=== PATIENT | female | born 1970 | race Caucasian/White ===

== ENCOUNTER → 2020-12-12 09:13 | Outpatient (CLI) | payer OTHER, SELFPAY ==
--- NOTE | ~2020-12-12 | CT_ITS ---
EXAMINATION: CT abdomen pelvis wo con EXAM DATE: 12/12/2020 09:29 INDICATION: Right flank pain. TECHNIQUE: Spiral CT of the abdomen and pelvis was performed without contrast. Axial, coronal and s agittal images were reviewed. The dose-length product (DLP) for this examination was 246.03 mGy-cm. The exposure was tailored according to patient size (auto mA exposure control), and iterative recons truction (ASIR) was used as additional dose reduction technique. There is no prior study for compari son. FINDINGS: The liver, spleen, adrenal glands and pancreas are unremarkable. Gallbladder is unremarkab le. No biliary obstruction. Punctate left superior calyceal stone. No ureteral stones or hydronephr osis. The uterus is unremarkable. The bladder is unremarkable. There is no retroperitoneal or pel nat lymphadenopathy. There is minimal intra-abdominal fat making appendix difficult to identify. The stomach and small israel wel are unremarkable. There is moderate amount of colonic stool. No free intraperitoneal gas. Th e heart is normal in size. There are no pericardial or pleural effusions. The lung bases are unrema rkable. The bones are unremarkable. IMPRESSION: No nephrolithiasis, hydronephrosis or acute intra-abdominal findings. Punctate left nephr olithiasis. Reviewed, dictated and finalized at location B. WAY MAINTENANCE SUPERVISOR IMPRESSION: No nephrolithiasis, hydronephrosis or acute intra-abdominal finding s. Punctate left nephrolithiasis.
--- NOTE | ~2020-12-12 | XR_ITS ---
EXAMINATION: XR abdomen/kub 1V INDICATION: Right flank pain TECHNIQUE: Supine views of the abdomen were obtained on 2 radiographs. COMPARISON: CT from today FINDINGS: No urolithiasis is identified. There are phleboliths of the pelvis. A moderate volume of co lonic stool is present. No dilated loops of bowel are evident. The visualized lung bases are clear. IMPRESSION: 1. No urolithiasis identified. Reviewed, dictated and finalized at location A. ICITY PERSON
== END ==
PROVIDERS: Visit Provider Urology
DX: R10.9 Unspecified abdominal pain (principal)
CPT/HCPCS: 74018; 74176

== ENCOUNTER → 2022-07-16 13:10 | Outpatient (CLI) | payer BC, SELFPAY ==
--- NOTE | ~2022-07-16 | XR_ITS ---
XR abdomen/kub 1V 07/16/2022 14:00 Indication: Bilateral hydronephrosis Procedure: KUB Comparison: 12/12/2020 Findings: Bowel gas pattern is nonobstructive. Moderate colonic fecal loading. There is bilateral dil ation of the renal collecting systems and proximal aspect of the left ureter. There is residual contr ast in the bladder. Impression: 1: Mild bilateral hydronephrosis. Reviewed, dictated and finalized at location B. Impression: 1: Mild bilateral hydronephrosis.
--- NOTE | ~2022-07-16 | CT_ITS ---
EXAMINATION: CT abdomen pelvis wo/w con DATE: 07/16/2022 14:00 INDICATION: Unspecified hydronephrosis. TECHNIQUE: Computed tomography (CT) of the abdomen and pelvis was performed without and with intraven ous contrast using a total of 130 mL Omnipaque-350 intravenous contrast with a double-bolus technique for simultaneous opacification of the renal parenchyma and renal collecting system. Automated exposu re control and iterative reconstruction technique were employed. The dose-length product was 717.80 m Gy-cm. COMPARISON: CT abdomen and pelvis 12/12/2020 FINDINGS: The visualized portions of the lung bases demonstrate mild atelectasis. No pleural effusion. The hear t size is normal. No pericardial effusion. There are bilateral breast implants. The liver, gallbladde r, spleen, pancreas, adrenal glands, and right kidney are normal. There is a 2 mm stone in left kidne y. The right ureter is not well opacified distally, but is normal. Left ureter is well opacified and is normal. The bladder is normal. There are no pathologically enlarged lymph nodes. There is no free intraperitoneal fluid. There is severe degenerative disc disease at L5-S1. IMPRESSION: 1. 2 mm nonobstructing left kidney stone. Reviewed, dictated and finalized at location A.
[2022-07-16 13:33] LABS: Estimated Glomerular Filt Rate > 60
== END ==
PROVIDERS: PCP Physician Assistant; Visit Provider Urology
DX: N13.30 Unspecified hydronephrosis (principal); N20.0 Calculus of kidney
CPT/HCPCS: 74018; 74178; Q9967

== ENCOUNTER 2023-08-05 09:00 | Outpatient (CLI) | payer OTHER, SELFPAY ==
--- NOTE | ~2023-08-05 | XR_ITS ---
EXAMINATION: XR abdomen/kub 1V INDICATION: Left-sided kidney stone TECHNIQUE: Supine views of the abdomen were obtained on 2 radiographs. COMPARISON: 07/16/2022 FINDINGS: There are phleboliths of the pelvis. No definite urolithiasis is identified. A moderate vol ume of colonic stool is present. There is mild elevation of the right hemidiaphragm. Osteitis pubis i s noted. IMPRESSION: 1. No definite urolithiasis identified. Reviewed, dictated and finalized at location L.
== END 2023-08-05 09:01 | disposition home or self-care (01) ==
PROVIDERS: PCP Physician Assistant; Visit Provider Urology
DX: N20.0 Calculus of kidney (principal)
CPT/HCPCS: 74018

== ENCOUNTER 2024-08-12 08:35 | Outpatient (CLI) | payer OTHER, SELFPAY ==
--- NOTE | ~2024-08-12 | XR_ITS ---
EXAMINATION: XR abdomen/kub 1V DATE: 08/12/2024 09:10 INDICATION: Kidney stone on left side. TECHNIQUE: A supine view of the abdomen on 3 radiographs was obtained. COMPARISON: CT abdomen and pelvis 07/16/2022, abdomen radiographs 08/05/2023 FINDINGS: There are no dilated loops of bowel. There are phleboliths in the pelvis. IMPRESSION: 1. No visible urolithiasis. Reviewed, dictated and finalized at location A. IMPRESSION: 1. No visible urolithiasis.
== END 2024-08-12 08:36 | disposition home or self-care (01) ==
PROVIDERS: PCP Physician Assistant; Visit Provider Urology
DX: N20.0 Calculus of kidney (principal)
CPT/HCPCS: 74018

== ENCOUNTER 2025-02-10 08:11 | Emergency (ER) | payer OTHER, SELFPAY ==
--- NOTE | 2025-02-10 08:14 | ED.FEMALEGU ---
HPI - Female Genitourinary General Chief complaint: Urogenital-Female Stated complaint: UTI SYMPTOMS Time Seen by Provider: 02/10/25 08:13 Source: patient Mode of arrival: ambulatory Limitations: no limitations History of Present Illness HPI Narrative: Patient is a 54-year-old female that presents with frequency, fullness and right lower quadrant pain For less than 48 hours. Patient has history of UTIs and sees a urologist. Patient reports pain is similar to the last UTI. denies any low back pain, fever, chills, nausea, vomiting, diarrhea. MD elicited complaint: dysuria Related Data Allergies Allergy/AdvReac Type Severity Reaction Status Date / Time codeine Allergy Unknown Unknown Verified 02/10/25 08:25 Review of Systems Review of Systems: All systems reviewed & are unremarkable except as noted in HPI and below Constitutional: Constitutional: Denies chills, Denies fever(s), Denies headache(s), Denies malaise and Denies weakness Eyes: Eyes: Denies change in vision, Denies eye discharge and Denies irritation ENT: Denies otalgia, Denies headache(s), Denies nasal congestion, Denies nasal discharge, Denies sinus pain and Denies sore throat Cardiovascular: Cardiovascular: Denies chest pain, Denies edema, Denies palpitations and Denies dyspnea Respiratory: Respiratory: Denies cough and Denies dyspnea Gastrointestinal: Gastrointestinal: Denies abdominal pain, Denies diarrhea, Denies nausea and Denies vomiting Genitourinary: Genitourinary: Denies hematuria, Reports nocturia, Denies dysuria, Denies flank pain and Reports urinary urgency Musculoskeletal: Musculoskeletal: Denies back pain and Denies numbness Integumentary/Breasts: Skin/Breast: Denies pruritus and Denies rash Neurologic: Denies headache(s), Denies numbness and Denies weakness Psychiatric: Psychiatric: Reports no additional psychiatric complaints Endocrine: Endocrine: Denies palpitations PMFSH Family History Family History Mother Hypertension Father Family history of pancreatic cancer Social History Social History Alcohol intake: never Comments At time of signature, agree with nursing past medical, surgical, social and family history. There is no relevant family history pertinent to the presenting complaint. Exam Const: General: cooperative, healthy appearing, comfortable, no acute distress and well nourished Nutritional Appearance: well nourished Orientation/consciousness: patient oriented x3 HENMT: Head: normocephalic and atraumatic Ears: external ears normal Face/Nose/Sinus: Normal external nose present, Normal nares present and normal facial exam Face and sinus: normal facial exam Eyes: General: appearance normal, both eyes and all related structures Pupils: Equal, round and reactive pupils present EOM: EOMs intact bilaterally Neck: Neck: normal visual inspection, full ROM and supple Chest: Chest palpation & inspection: normal inspection of the chest Resp: Effort & Inspection: normal respiratory effort and able to speak in complete sentences Cardio: Rate: regular rate Rhythm: regular rhythm GI: Inspection: normal to inspection GI Palp: No abdominal tenderness and Yes Soft to palpation : General: Yes no CVA tenderness Back/Spine/Pelvis: Back: no CVA tenderness Skin: General skin exam: normal color and no rashes or lesions noted Neuro: General: patient oriented x3 and moves all extremities Cranial nerves: Yes Equal, round and reactive pupils present Extrem: General: normal to inspection and full ROM Psych: Appearance: grossly normal and well kempt Course Course Emergency Course: Patient is aware of diagnosis, understands and agrees to treatment plan. Anticipatory guidance given. Patient agrees to follow-up as directed and is aware of reasons to seek care at the emergency department. Portions of this record may have been created with voice recognition software Level of Care: Express Care Visit Vital Signs Vital signs: Vital Signs Temperature 36.4 C 02/10/25 08:27 Pulse Rate 62 02/10/25 08:27 Respiratory Rate 16 02/10/25 08:27 Blood Pressure 116/83 02/10/25 08:27 Pulse Oximetry 100 02/10/25 08:27 Temperature 36.4 C 02/10/25 08:27 Pulse Rate 62 02/10/25 08:27 Respiratory Rate 16 02/10/25 08:27 Blood Pressure 116/83 02/10/25 08:27 Pulse Oximetry 100 02/10/25 08:27 Reviewed MDM - Female Genitourinary MDM Narrative Medical decision making narrative: patient has known right hip flexor dysfunction that causes similar symptoms of a UTI. Patient works closely with her urologist. Exam findings and UA show probable UTI; patient is non-toxic appearing and is in no distress. No CMT, adnexal tenderness, or evidence of pelvic etiology. Patient is appropriate for outpatient treatment and follow-up. Differential Diagnosis Differential diagnosis: Likely urinary tract infection, bacterial vaginosis, trichomoniasis, cervicitis, vaginitis and cystitis Medical Records Attestation: I reviewed the patient's medical records. Lab Data Attestation: I reviewed the patient's lab results. Labs: Lab Results 02/10/25 Range/Units 08:33 POC Urine Color Light/pale POC Urine Clarity Clear POC Urine pH 7.0 POC Ur Specif [place] 1.010 POC Urine Protein Negative (Negative) POC Ur Glucose (UA) Negative (Negative) POC Urine Ketones Negative (Negative) POC Urine Blood Trace (Negative) POC Urine Nitrite Negative (Negative) POC Urine Bilirubin Negative (Negative) POC Urine Urobilinogen 0.2 POC U Leukocyte Esteras Trace (Negative) Discharge Plan Discharge Clinical Impression: Urinary tract infection Qualifiers: Urinary tract infection type: acute cystitis Hematuria presence: without hematuria Qualified Code(s): N30.00 - Acute cystitis without hematuria Patient Disposition: Home, Self-Care Condition: Stable Instructions: Urinary Tract Infection in Women (ED) Additional Instructions: We will send a urine culture to the lab, based on your symptoms and urine dip we will start treatment today. If culture comes back and bacteria is not susceptible to antibiotic, your prescription may change. Your symptoms should improve within a day of starting antibiotics, but you should finish all the antibiotic pills you get. Otherwise your infection might come back Continue with increased water intake. Take Tylenol or ibuprofen as needed for pain or fever. Follow-up with primary care provider for urine recheck or see ER visit if condition worsens with high fever, nausea, vomiting, severe back pain Patient Language: Danish Prescriptions: New sulfamethoxazole-trimethoprim 800-160 mg tablet 1 tablet PO Q12H 5 Days Qty: 10 0RF Follow-up/Referrals: Sonya,LANI Burkett [Primary Care Provider] - 3 Days Time of Disposition: 08:52
[2025-02-10 08:27] VITALS: BP 116/83; PULSE 62; RESP 16; TEMP 36.4; O2SAT 100
[2025-02-10 08:36] LABS: EDUAAPPEAR Clear; EDUABILI Negative (Negative); EDUABLOOD Trace (Negative); EDUACOLOR1 Light/Pale; EDUAGLUCOSE Negative (Negative); EDUAKETONE Negative (Negative); EDUALEUKO Trace (Negative); EDUANITRATE Negative (Negative); EDUAPROTEIN Negative (Negative); EDUAUROBILI 0.2
== END 2025-02-10 08:58 | disposition home or self-care (01) ==
PROVIDERS: Emergency Provider Nurse Practitioner Family; PCP Physician Assistant
DX: N30.00 Acute cystitis without hematuria (principal)
CPT/HCPCS: 81003; 87086; 99203; G0463

== ENCOUNTER 2025-04-10 08:02 | Emergency (ER) | payer OTHER, SELFPAY ==
--- NOTE | 2025-04-10 08:05 | ED_ITS ---
HPI - Eye Problem General Stated complaint: Left Eye Irritation Time Seen by Provider: 04/10/25 08:02 Source: patient Mode of arrival: ambulatory Limitations: no limitations History of Present Illness HPI Narrative: Nissa is a 54-year-old female patient presenting to the clinic today with complaints of left upper eyelid pain x1 week. She reports the area is gradually gotten bigger and more swollen. Has tried doing allergy drops without relief. No fevers, chills, body aches. Had URI symptoms for couple weeks however those have resolved. Related Data Allergies Allergy/AdvReac Type Severity Reaction Status Date / Time codeine Allergy Unknown Unknown Verified 02/10/25 08:25 Review of Systems Review of Systems: Pertinent positives per HPI. Patient denies any fever, chills, rash, headache, visual changes, dizziness, cough, shortness of breath, chest pain, palpitations, nausea, vomiting, diarrhea, constipation, abdominal pain, or any urinary issues. [facility] Family History Family History Mother Hypertension Father Family history of pancreatic cancer Social History Social History Alcohol intake: never Comments At the time of my signature, I reviewed and agree with the nursing past medical, surgical, social, and family history. There is no relevant family history pertinent to the patient complaint. Exam Narrative: General: Well-developed, well nourished, in no apparent distress Head: Normocephalic, atraumatic Eyes: Pupils equally round and reactive to light bilaterally, EOM intact, sclera and conjunctive clear, no discharge, left upper eyelid swollen and red tenderness to palpation with internal stye to the mid upper lid Ears: TMs intact and clear, ear canals clear, no drainage, grossly hearing normal. Nose: Nares patent, no discharge, no inflammation, no sinus tenderness. Mouth: Oral pharynx without lesions or masses, good dentition, MMM. Neck: Supple, trachea midline, no enlargement of anterior or posterior cervical nodes, no thyroid masses or goiter palpable. Cardio: Regular rate and rhythm, s1 and s2 normal, no murmur appreciated. Resp: Clear to auscultation bilaterally, no rhonchi, rales, wheezing or rubs Course Course Emergency Course: Portions of this record may have been created with voice recognition software. Level of Care: Express Care Visit Vital Signs Vital signs: Vital signs reviewed MDM - Eye Problem MDM Narrative Medical decision making narrative: At the time of visit patient is resting comfortably on the exam table. Patient appears to be nontoxic. Plan: I suspect patient has an internal stye. Prescription for polymyxin eyedrops was sent to the pharmacy. Supportive measures were discussed with the patient and they voiced understanding discharge instructions and agrees to treatment plan. Return precautions reviewed Differential Diagnosis Differential diagnosis: Likely corneal abrasion, conjunctivitis, acute iritis, hyphema, periorbital cellulitis, subconjunctival hemorrhage, glaucoma, corneal ulcer, ruptured globe and other (Stye) Discharge Plan Discharge Clinical Impression: Hordeolum eyelid, internal Qualifiers: Laterality: left Eyelid: upper Qualified Code(s): H00.024 - Hordeolum internum left upper eyelid Patient Disposition: Home Condition: Stable Instructions: Antibiotic Form, Stye (ED) Additional Instructions: Practice good hand washing techniques Avoid touching eyes Instill eyedrops as prescribed May use warm moist washcloth compresses-apply for 15 minutes at a time 6-8 times per day If eyes are matted shut-do not pry eyes open-use a warm moist cloth to loosen matting and wipe matter away from eye May take Tylenol/Motrin as needed for pain or fever May take Benadryl as needed for itching Follow-up with your eye doctor in 3-5 days if symptoms persist or sooner if they worsen Go to the emergency room if you develop any fever that is not controlled by Tylenol or Motrin, loss of vision, eye pain, increase eye swelling,visual changes, headache, confusion, lethargy, weakness, chest pain, or shortness of breath. Patient Language: Icelandic Prescriptions: New polymyxin B sulf-trimethoprim 10,000 unit- 1 mg/mL drops 1 drp LEFT EYE Q3H 7 Days Qty: 10 0RF Rx Instructions: while awake; do not exceed 6 doses in 24 hours No Action sulfamethoxazole-trimethoprim 800-160 mg tablet 1 tablet PO Q12H 5 Days Qty: 10 0RF Follow-up/Referrals: Sonya,LANI Burkett [Primary Care Provider] - Time of Disposition: 08:12 Quality NIHSS Nursing Documentation ED NIHSS nursing documentation: reviewed/agree
[2025-04-10 08:10] VITALS: BP 114/80; PULSE 48; RESP 16; TEMP 36.3; O2SAT 99
== END 2025-04-10 08:15 | disposition home or self-care (01) ==
PROVIDERS: Emergency Provider Nurse Practitioner Family; PCP Physician Assistant
DX: H00.024 Hordeolum internum left upper eyelid (principal)
CPT/HCPCS: 99213; G0463

== ENCOUNTER 2025-07-14 09:17 | Outpatient (CLI) | payer OTHER, SELFPAY ==
--- NOTE | ~2025-07-14 | XR_ITS ---
EXAMINATION: XR abdomen/kub 1V DATE: 07/14/2025 09:38 INDICATION: Kidney stone. Right-sided pain. Follow-up TECHNIQUE: A single frontal image of the abdomen was obtained. COMPARISON: 08/12/2024 FINDINGS: Moderate amount of air and stool in nondilated large bowel. No radiographic evidence for renal calcul i. There are a few stable less than 6 mm phlebolith in the pelvis. Small amount of air in nondilated sma ll bowel. Bones are grossly unchanged. IMPRESSION: 1. No radiographic evidence for renal calculi. 2. Nonobstructive bowel gas pattern with a moderate amount of stool. 3. There are a few stable less than 6 mm phlebolith in the pelvis. Reviewed, dictated and finalized at location A.
--- OUTSIDE RECORDS SUMMARY | 2025-07-14 09:33 | XMS_ITS | Encounter Summary ---
Author Organization [facility] Address [address] [place] [address] Care Team Providers Care Animal Anatomist Name Role Phone Jessica Hardwick MD Primary Care Provider [phone] Encounter Details Date Type Department Care Team (Latest Contact Info) Description 09/03/2008 Outpatient Historical [facility] Jonathan Pedro MD [address] [place] [address] Other Specified Complication, Antepartum Social History Tobacco Use Types Packs/Day Years Used Date Smoking Tobacco: Never Assessed Comments Unknown Sex and Gender Information Value Date Recorded Sex Assigned at Not on file 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
--- OUTSIDE RECORDS SUMMARY | 2025-07-14 09:33 | XMS_ITS | Clinical Summary ---
Author Organization [facility] [employer] Address [address] [place] [address] Care Team Providers Care Digital Marketing Officer Name Role Phone Unavailable Primary Care Provider Unavailabl e Source Comments [facility],non-owned Affiliates and Associated Physician Practices is amultiple site organization consisting of ambulatory clinics and hospital sitesin [place], [place], [place] and [place]. This disclosure is being madepursuant to the Care Everywhere program and may not contain all information available regarding this patient. Last updated 18.[facility] [employer] Allergies Active Allergy Reactions Criticality Noted Date Comments Codeine Swelling Medium 12/30/2005 Medications * Be aware that medications may not be up to date on this document. Alwaysverify current medications with the patient. cetirizine (ZYRTEC) 10 MG tablet Take 10 mg by mouth every 24 hours as needed Active fluticasone propionate (FLONASE) 50 MCG/ACT nasal spray Gibson 1 spray into the nose once daily 01/25/2017 Active montelukast (SINGULAIR) 10 MG tablet Take 1 tablet by mouth once daily 01/25/2017 Active Active Problems No known active problems Immunizations Immunization Administration Dates Next Due FLU VACCINE QUAD IIV4 PF ID 09/06/2016 INFLUENZA VACCINE, QUADR. (F LUZONE; FLULAVAL; FLUARIX; AFLURIA QUADRIVALENT; 6MO+), 0.5 ML (IIV4) 09/05/2020,09/08/2019,09/03/2018 Social History Tobacco Use Types Packs/Day Years Used Date Smoking Tobacco: Never Assessed Comments Unknown Sex and Gender Information Value Date Recorded Sex Assigned at Not on file Legal Sex Female 6:07 AM WEDDING DAY COORDINATOR Gender Identity Not on file Sexual Orientation Not on file Last Filed Vital Signs Vital Sign Reading Time Taken Comments Blood Pressure 118/70 11/02/2019 6:17 PM WEDDING DAY COORDINATOR Pulse 70 11/02/2019 6:17 PM WEDDING DAY COORDINATOR Temperature 36.8 C (98.3 F) 11/02/2019 6:17 PM WEDDING DAY COORDINATOR Respiratory Rate 20 11/02/2019 6:17 PM WEDDING DAY COORDINATOR Oxygen Saturation - - Inhaled Oxygen Concentration - - Weight - - Height - - Body Mass Index - - Plan of Treatment Health Maintenance Due Date Last Done Comments COLOGUARD (AGES 45-75) - COLON CA SCREENING 1971 COLON MONITORING 1971 COLONOSCOPY - COLON CA SCREENING 1971 CT COLONOGRAPHY - COLON CA SCREENING 1971 Colorectal Cancer Screening 1971 FIT - COLON CA SCREENING 1971 FLEX SIG - COLON CA SCREENING 1971 LIPID TESTING 1971 MAMMOGRAM 1971 HIV SCREENING 1986 HEPATITIS C SCREENING 10/04/1989 DTAP/TDAP/TD VACCINES (1 - Tdap) 1990 HEPATITIS B VACCINE (1 of 3 - 19+ 3-dose series) 1990 PNEUMOCOCCAL VACCINE 50+ (1 of 1 - PCV) 2021 ZOSTER VACCINE (1 of 2) 2021 PAP SMEAR 06/05/2023 06/05/2020 COVID-19 VACCINE ( - season) 2024 DEPRESSION SCREENING 12/01/2024 INFLUENZA VACCINE (#1) 2025 , 09/08/2019, 09/03/2018, Additional history exists HIB VACCINE Aged Out No longer eligi ble based on patient's age to complete this topic HPV VACCINE Aged Out No longer eligi ble based on patient's age to complete this topic MENINGOCOCCAL (Group B) VACCINE SHARED DECISION-MAKING Aged Out No longer eligible based on patient's age to complete this topic MENINGOCOCCAL GROUPS A/C/Y/W VACCINE Aged Out No longer eligible based on patient's age to complete this topic Insurance [employer] FORMERLY [facility], 1928–1983
--- OUTSIDE RECORDS SUMMARY | 2025-07-14 09:33 | XMS_ITS | Encounter Summary ---
Author Organization [facility] Address [address] [place] [address] Care Team Providers Care Hot Stick Worker Name Role Phone Jessica Hardwick MD Primary Care Provider [phone] Encounter Details Date Type Department Care Team (Late st Contact Info) Description 12/30/2005 Outpatient Historical [facility] Internal Medicine - [address] [place] [phone] [place] [address] [place] [id number] Social History Tobacco Use Types Packs/Day Years Used Date Smoking Tobacco: Never Assessed Comments Unknown Sex and Gender Information Value Date Recorded Sex Assigned at Not on file 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 [address] [place] [address] PCP - General Internal Medicine 10/08/16 documented as of this encounter
--- OUTSIDE RECORDS SUMMARY | 2025-07-14 09:33 | XMS_ITS | Encounter Summary ---
Author Organization [employer] Address 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
--- OUTSIDE RECORDS SUMMARY | 2025-07-14 09:34 | XMS_ITS | Encounter Summary ---
Author Organization [employer] Address [address] [place] [address] Care Team Providers Care Combat Control Name Role Phone Jessica Hardwick MD Primary Care Provider [phone] Encounter Details Date Type Department Care Team (Late st Contact Info) Description 06/29/2008 Outpatient Historical [facility] Jonathan Pedro MD [address] [facility] [address] [place] [address] Faheem Cardoso MD [address] [facility] [address] [address] Normal Delivery Social History Tobacco Use Types Packs/Day Years Used Date Smoking Tobacco: Never Assessed Comments Unknown Sex and Gender Information Value Date Recorded Sex Assigned at Not on file 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 Gender Identity Not on file Sexual Orientation Not on file documented as of this encounter Plan of Treatment Not on file documented as of this encounter Procedures Procedure Name Priority Date/Time Associated Diagnosis Comments CBC WITH DIFFERENTIAL Stat 09/01/2008 8:57 PM CDT URINALYSIS WITH REFLEX CULTURE Stat 09/01/2008 8:54 PM CDT URINALYSIS W/REFLEX MICROSCOPIC Stat 09/01/2008 8:54 PM CDT documented in this encounter Results * (ABNORMAL) CBC WITH DIFFERENTIAL (09/01/2008 8:57 PM CDT) RBC 3.62(L) 3.90 - 4.90 M/uL [facility] MCHC 35.0 31.5 - 35.5 % [facility] MCV 93.1 82.0 - 99.0 fL [facility] PLATELETS 249 140 - 350 K/uL [facility] HEMOGLOBIN 11.8 11.8 - 14.8 g/dL [facility] RDW 12.6 11.5 - 14.5 % [facility] WBC 11.1(H) 4.0 - 9.8 K/uL [facility] MCH 32.6 27.2 - 32.6 pg [facility] MPV 10.3 9.3 - 12.4 fL [facility] HEMATOCRIT 33.7(L) 35.5 - 44.0 % [facility] RDW-STDEV 43.0 37.1 - 48.7 fL [facility] MONOCYTES 5 3 - 13 % [facility] MONOCYTE ABSOLUTE 0.53 0.10 - 1.30 K/uL [facility] NEUTROPHILS 73(H) 45 - 70 % [facility] NEUTROPHIL ABSOLUTE 8.03(H) 1.90 - 7.00 K/uL [facility] EOSINOPHILS 1 0 - 7 % [facility] EOSINOPHIL ABSOLUTE 0.09 0.00 - 0.70 K/uL [facility] LYMPHOCYTES 22 16 - 45 % [facility] LYMPHOCYTE ABSOLUTE 2.40 0.70 - 4.50 K/uL [facility] BASOPHILS 0 0 - 2 % [facility] BASOPHILS ABSOLUTE 0.01 0.00 - 0.20 K/uL [facility] Blood specimen (specimen) 09/01/2008 8:57 PM CDT 09/01/2008 9:21 PM CDT Result [facility] Jonathan Pedro MD HEMATOLOGY ORDERABLES Edited Performing Organization Address [facility] Phone Number INTERFACE SYSTEM Refer to clinic/hospital department [facility] CLIA# [id number] [address] [place] [address] * URINALYSIS (09/01/2008 8:54 PM CDT) LEUKOCYTE ESTERASE UA Negative Negative [facility] SPECIFIC GRAVITY UA 1.018 1.001 - 1.035 [facility] GLUCOSE UA Negative Negative [facility] BLOOD UA Negative Negative [facility] COLOR UA Yellow [facility] NITRITE UA Negative Negative [facility] UROBILINOGEN UA <1 <=1 mg/dL [facility] PH UA 6.0 5.0 - 8.0 [facility] KETONES UA Negative Negative [facility] CLARITY UA Clear Clear [facility] BILIRUBIN UA Negative Negative [facility] PROTEIN UA Negative Negative [facility] 09/01/2008 8:54 PM CDT 09/01/2008 9:48 PM CDT Result [facility] Jonathan Pedro MD URINE ORDERABLES Final Resul t Performing Organization Address [facility] Phone Number INTERFACE SYSTEM Refer to clinic/hospital department [facility] CLIA# [id number] [address] [place] [address] * URINALYSIS WITH REFLEX CULTURE (09/01/2008 8:54 PM CDT) URINE CULTURE ORDER Not indicated [facility] Comment: Criteria for a reflex culture include one or more of the following: Abnormal nitrite, leukocyte esterase, WBCs or RBCs. Lack of qualifying criteria does not exclude the possiblity of a urinary tract infection. Dilute urine, drug interference, etc. may decrease the sensitivity of the criteria analytes. Urine specimen (specimen) 09/01/2008 8:54 PM CDT 09/01/2008 9:48 PM CDT us Jonathan Pedro MD URINE ORDERABLES Final Resul t INTERFACE SYSTEM Refer to clinic/hospital department [facility] CLIA# [id number] [address] [place] [address] documented in this encounter Visit Diagnoses Diagnosis Normal delivery documented in this encounter Care Teams Combat Control Relationship Specialty Start Date End Date Jessica Hardwick MD [address] [facility] [address] [place] [address] PCP - General Internal Medicine 10/08/16 documented as of this encounter
--- OUTSIDE RECORDS SUMMARY | 2025-07-14 09:34 | XMS_ITS | Encounter Summary ---
Author Organization [facility] Address [address] [place] [address] Care Team Providers Care Circus Roustabout Name Role Phone Jessica Hardwick MD Primary Care Provider [phone] Encounter Details Date Type Department Care Team (Late st Contact Info) Description 09/30/2007 Outpatient Historical [facility] Internal Medicine 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
--- OUTSIDE RECORDS SUMMARY | 2025-07-14 09:34 | XMS_ITS | Encounter Summary ---
Author Organization [facility] Address [address] [facility] [place] [address] Care Team Providers Care Domestic Violence Advocate Name Role Phone Unavailable Primary Care Provider Unavailabl e Encounter Details Date Type Department Care Team (Late st Contact Info) Description 08/08/2021 Lab Requisition [facility] Derm[facility] Lab [address] [facility] [place] [address] Macy Musa DO [address] [facility] [address] [place] [address] Social History Tobacco Use Types Packs/Day Years Used Date Smoking Tobacco: Never Assessed Comments Unknown Sex and Gender Information Value Date Recorded Sex Assigned at Not on file 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 Gender Identity Not on file Sexual Orientation Not on file documented as of this encounter Plan of Treatment Not on file documented as of this encounter Procedures Procedure Name Priority Date/Time Associated Diagnosis Comments DERMATOPATHOLOGY Routine 08/07/2021 3:33 AM CDT documented in this encounter Results * DERMATOPATHOLOGY (08/07/2021 3:33 AM CDT) Case Report Dermatopathology Report Case: [id number] Authorizing Provider: Macy Musa DO Collected: 08/07/2021 03:33 AM Ordering Location: [facility] Derm[facility] Lab Received: 08/08/2021 06:36 AM Pathologist: Katalina Fernandez MD Specimen: Skin, right anterior shoulder 3:03 PM CDT DERMATOPATHOLOGY LABORATORY Final Diagnosis Specimen A. SKIN, right anterior shoulder: SEBORRHEIC KERATOSIS, MACULAR (L82.1) 3:03 PM CDT DERMATOPATHOLOGY LABORATORY at 1503 CDT Clinical History Nevus vs lent R/O MM, irregular brown patch. 3:03 PM CDT DERMATOPATHOLOGY LABORATORY Gross Description Specimen A: Received is one formalin filled container labeled with the patient's name and designated right anterior shoulder. The specimen consists of a shave measuring [id number]. Jar 0. 3:03 PM CDT DERMATOPATHOLOGY LABORATORY Microscopic Description Specimen A. SKIN, right anterior shoulder: Sections show a relatively broad, flat proliferation of small keratinocytes. The surface is gently papillated, and there is increased basilar pigmentation. 3:03 PM CDT DERMATOPATHOLOGY LABORATORY Disclaimer An external and internal positive and negative controls are appropriate for the histochemical, immunohistochemical and immunofluorescence stain(s) in this case (if any), except where stated explicitly. The performance characteristics of the stain(s) cited in this report were developed and its performance characteristic determined by the Dermatopathology Laboratory at [facility], directed by Dr. Otilia Fernandez. These tests need not be, and therefore are not, approved by the [place] Food and Drug Administration. The tests are used for clinical purposes. Billing Codes Specimen Charges Stain Charges 82339 1 3:03 PM CDT DERMATOPATHOLOGY LABORATORY Embedded Images 3:03 PM CDT DERMATOPATHOLOGY LABORATORY Pathology/Cytolo gy TISSUE SPECIMEN FROM SKIN / Unknown 08/07/2021 3:33 AM CDT 08/08/2021 6:36 AM CDT us Macy Musa DO LAB - PATHOLOGY/CYTOLOGY ORDERABLES Final Result DERMATOPATHOLOGY LABORATORY [facility] - Department of Dermatology [address], [address] [phone] documented in this encounter Visit Diagnoses Not on filedocumented in this encounter
--- OUTSIDE RECORDS SUMMARY | 2025-07-14 09:34 | XMS_ITS | Encounter Summary ---
Author Organization [facility] Address [address] [place] [address] Care Team Providers Care Hand Outside Cutter Name Role Phone Jessica Hardwick MD Primary Care Provider [phone] Encounter Details Date Type Department Care Team (Late st Contact Info) Description 12/30/2005 Outpatient Historical [facility] Internal Medicine - [place] [address] [place] [phone] [place] [address] [place] [address] Social History Tobacco Use Types Packs/Day Years Used Date Smoking Tobacco: Never Assessed Comments Unknown Sex and Gender Information Value Date Recorded Sex Assigned at Not on file Legal 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
--- OUTSIDE RECORDS SUMMARY | 2025-07-14 09:34 | XMS_ITS | Encounter Summary ---
Author Organization [facility] Address [address] [place] [address] Care Team Providers Care Ip Attorney Name Role Phone Jessica Hardwick MD Primary Care Provider [phone] Encounter Details Date Type Department Care Team (Latest Contact Info) Description 05/05/2007 Outpatient Historical [facility] Pedro, Jonathan Osuna MD [address] [facility] [address] [place] [address] Other Screening Mammogram (Primary Dx) Social History Tobacco Use Types Packs/Day Years Used Date Smoking Tobacco: Never Assessed Comments Unknown Sex and Gender Information Value Date Recorded Sex Assigned at Not on file 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
--- OUTSIDE RECORDS SUMMARY | 2025-07-14 09:34 | XMS_ITS | Encounter Summary ---
Author Organization [facility] Address [address] [place] [address] Care Team Providers Care In Store Banker Name Role Phone Jessica Hardwick MD Primary Care Provider [phone] Encounter Details Date Type Department Care Team (Latest Contact Info) Description 09/30/2007 Outpatient Historical [facility] Internal Medicine - [place] [address] [place] [address] Panda Miller Routine General Medical Examination at a Health Care Facility (Primary Dx) Social History Tobacco Use Types Packs/Day Years Used Date Smoking Tobacco: Never Assessed Comments Unknown Sex and Gender Information Value Date Recorded Sex Assigned at Not on file 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 Gender Identity Not on file Sexual Orientation Not on file documented as of this encounter Plan of Treatment Not on file documented as of this encounter Procedures Procedure Name Priority Date/Time Associated Diagnosis Comments LIPID PANEL Routine 09/30/2007 4:55 PM CDT CBC WITH DIFFERENTIAL Routine 09/30/2007 11:08 AM CDT CBC WITH DIFFERENTIAL Routine 09/30/2007 11:08 AM CDT TSH Routine 09/30/2007 11:08 AM CDT COMPREHENSIVE METABOLIC PANEL Routine 09/30/2007 11:08 AM CDT documented in this encounter Results * (ABNORMAL) LIPID PANEL (09/30/2007 4:55 PM CDT) CHOLESTEROL 218(H) 100 - 199 mg/dL INTERFACE SYSTEM TRIGLYCERIDE 62 10 - 149 mg/dL INTERFACE SYSTEM HDL 82(H) 40 - 59 mg/dL INTERFACE SYSTEM CHOL/HDL RATIO 2.7 2.0 - 5.0 INTER FACE SYSTEM LDL CALCULATED 124(H) <=99 mg/dL INTERFACE SYSTEM LIPID PANEL COMMENT See Below INTERFACE SYSTEM Comment: The adult ATP and pediatric NCEP classifications for lipids are available on the [facility] Intranet at: [email or web address] Select: Lab Policies and Procedures,Current Select: Lipid Panel Interpretation 09/30/2007 4:55 PM CDT [facility] CHEMISTRY ORDERABLES Edited Performing Organization Address [facility] de Phone Number INTERFACE SYSTEM Refer to clinic/hospital department * CBC WITH DIFFERENTIAL (09/30/2007 11:08 AM CDT) Pathologist [facility] NEUTROPHILS 54 45 - 70 % INTERFAC E SYSTEM LYMPHOCYTES 38 16 - 45 % INTERFAC E SYSTEM MONOCYTES 6 3 - 13 % INTERFACE SYSTEM EOSINOPHILS 2 0 - 7 % INTERFAC E SYSTEM BASOPHILS 0 0 - 2 % INTERFACE SYSTEM NEUTROPHIL ABSOLUTE 2.96 1.90 - 7.00 K/uL INTERFACE SYSTEM LYMPHOCYTE ABSOLUTE 2.06 0.70 - 4.50 K/uL INTERFACE SYSTEM MONOCYTE ABSOLUTE 0.34 0.10 - 1.30 K/uL INTERFACE SYSTEM EOSINOPHIL ABSOLUTE 0.08 0.00 - 0.70 K/uL INTERFACE SYSTEM BASOPHILS ABSOLUTE 0.01 0.00 - 0.20 K/uL INTERFACE SYSTEM 09/30/2007 11:0 8 AM CDT [facility] HEMATOLOGY ORDERABLES Edited Performing Organization Address [facility] de Phone Number INTERFACE SYSTEM Refer to clinic/hospital department * CBC WITH DIFFERENTIAL (09/30/2007 11:08 AM CDT) Pathologist [facility] WBC 5.5 4.0 - 9.8 K/uL INTERFACE SYSTEM RBC 4.15 3.90 - 4.90 M/uL INTERFACE SYSTEM HEMOGLOBIN 13.2 11.8 - 14.8 g/dL INTERFACE SYSTEM HEMATOCRIT 37.6 35.5 - 44.0 % INTERFACE SYSTEM MCV 90.6 82.0 - 99.0 fL INTERFACE SYSTEM MCH 31.8 27.2 - 32.6 pg INTERFACE SYSTEM MCHC 35.1 31.5 - 35.5 % INTERFACE SYSTEM RDW 12.2 11.5 - 14.5 % INTERFACE SYSTEM RDW-STDEV 40.5 37.1 - 48.7 fL INTERFACE SYSTEM PLATELETS 231 140 - 350 K/uL INTERFACE SYSTEM MPV 11.8 9.3 - 12.4 fL INTERFACE SYSTEM 09/30/2007 11:0 8 AM CDT Panda Miller HEMATOLOGY ORDERABLES Edited Performing Organization Address City/[facility] Co de Phone Number INTERFACE SYSTEM Refer to clinic/hospital department * TSH (09/30/2007 11:08 AM CDT) TSH 1.65 0.27 - 4.20 uU/mL INTERFACE SYSTEM 09/30/2007 11:0 8 AM CDT [facility] [place] CHEMISTRY ORDERABLES Edited Performing Organization Address [facility] Co de Phone Number INTERFACE SYSTEM Refer to clinic/hospital department * COMPREHENSIVE METABOLIC PANEL (09/30/2007 11:08 AM CDT) GLUCOSE 90 65 - 99 mg/dL INTERFACE SYSTEM CREATININE 0.75 0.51 - 0.95 mg/dL INTERFACE SYSTEM CALCIUM 8.5 8.4 - 10.2 mg/dL INTERFACE SYSTEM ALKALINE PHOSPHATASE 50 35 - 104 U/L INTERFACE SYSTEM AST 21 12 - 32 U/L INTERFACE SYSTEM ALT 16 0 - 31 U/L INTERFACE SYSTEM TOTAL PROTEIN 7.0 6.3 - 8.6 g/dL INTERFACE SYSTEM ALBUMIN 4.4 3.4 - 4.8 g/dL INTERFACE SYSTEM BILIRUBIN TOTAL 0.3 0.2 - 1.0 mg/dL INTERFACE SYSTEM BUN 19 6 - 20 mg/dL INTERFACE SYSTEM SODIUM 138 135 - 145 mmol/L INTERFACE SYSTEM POTASSIUM 4.1 3.5 - 4.9 mmol/L INTERFACE SYSTEM CHLORIDE 106 96 - 108 mmol/L INTERFACE SYSTEM CO2 22 22 - 30 mmol/L INTERFACE SYSTEM GFR, >60 >=60 mL/min/1.7 sq meter INTERFACE SYSTEM GFR >60 >=60 mL/min/1.7 sq meter INTERFACE SYSTEM Comment: Estimated GFR rate interpretative information for both Americans and non- Americans is available on the [facility] Intranet at: [email or web address] Select: Lab Policies and Procedures Select: Reference Ranges - GFR 09/30/2007 11:0 8 AM CDT Panda Angela CHEMISTRY ORDERABLES Edited INTERFACE SYSTEM Refer to clinic/hospital department documented in this encounter Visit Diagnoses Diagnosis Routine general medical examination at a health care facility- Primary documented in this encounter Care Teams In Store Banker Relationship Specialty Start Date End Date Jessica Hardwick MD [address] [place] [address] PCP - General Internal Medicine 10/08/16 documented as of this encounter
--- OUTSIDE RECORDS SUMMARY | 2025-07-14 09:34 | XMS_ITS | Encounter Summary ---
Author Organization [employer] Address [address] [place] [address] Care Team Providers Care It Security Manager Name Role Phone Jessica Hardwick MD Primary Care Provider [phone] Encounter Details Date Type Department Care Team (Latest Contact Info) Description 08/02/2008 Outpatient Historical [facility] Jonathan Pedro MD [facility] [address] [address] Other Specified Complication, Antepartum Social History Tobacco Use Types Packs/Day Years Used Date Smoking Tobacco: Never Assessed Comments Unknown Sex and Gender Information Value Date Recorded Sex Assigned at Not on file 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 Gender Identity Not on file Sexual Orientation Not on file documented as of this encounter Plan of Treatment Not on file documented as of this encounter Procedures Procedure Name Priority Date/Time Associated Diagnosis Comments US OB LTD 1 OR MORE FETUSES Timed Study 08/18/2008 2:55 PM CDT documented in this encounter Results * US OB LTD 1 OR MORE FETUSES (08/18/2008 2:55 PM CDT) Anatomical Region Laterality Modality Pelvis Other Narrative 08/18/2008 2:55 PM CDT Results in [employer] Procedure Note 06/08/2009 Results in [employer] Jonathan Pedro MD US ORDERABLES Final Result documented in this encounter Visit Diagnoses Diagnosis Other specified complication, antepartum(286.33) Other specified complication, antepartum documented in this encounter Care Teams It Security Manager Relationship Specialty Start Date End Date Jessica Hardwick MD [address] [place] [address] PCP - General Internal Medicine 10/08/16 documented as of this encounter
--- OUTSIDE RECORDS SUMMARY | 2025-07-14 09:34 | XMS_ITS | Encounter Summary ---
Author Organization [facility] Address [address] [place] [address] Care Team Providers Care Journeyman Wireman Name Role Phone Jessica Hardwick MD Primary Care Provider [phone] Encounter Details Date Type Department Care Team (Late st Contact Info) Description 07/21/2006 Outpatient Historical [facility] Internal Medicine - [place] [address] [place] [address] [place] [address] [place] [address] Social History Tobacco Use Types Packs/Day Years Used Date Smoking Tobacco: Never Assessed Comments Unknown Sex and Gender Information Value Date Recorded Sex Assigned at Not on file 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 Gender Identity Not on file Sexual Orientation Not on file documented as of this encounter Last Filed Vital Signs Vital Sign Reading Time Taken Comments Blood Pressure 100/60 07/21/2006 11:45 AM CDT Pulse 56 07/21/2006 11:45 AM CDT Temperature - - Respiratory Rate - - Oxygen Saturation - - Inhaled Oxygen Concentration - - Weight 58.1 kg (128 lb) 07/21/2006 11:45 AM CDT Height - - Body Mass Index - - documented in this encounter Plan of Treatment Not on file documented as of this encounter Visit Diagnoses Not on filedocumented in this encounter Care Teams Journeyman Wireman Relationship Specialty Start Date End Date Jessica Hadrwick MD [address] [facility] [address] [place] [address] PCP - General Internal Medicine 10/08/16 documented as of this encounter
--- OUTSIDE RECORDS SUMMARY | 2025-07-14 09:34 | XMS_ITS | Clinical Summary ---
Author Organization [facility] Administrative Offices Address [address] [place] [address] Care Team Providers Care Form Maker Name Role Phone Jessica Hardwick MD Primary Care Provider [phone] Allergies Active Allergy Reactions Criticality Noted Date Comments Codeine Swelling Medium 12/30/2005 Medications multivitamin (DAILY-LUIS CARLOS) tablet Take 1 Tab by mouth daily. Active B INFANTIS/B ANI/B ADITYA/B BIFID (PROBIOTIC 4X ORAL) Take by mouth daily. Active fluticasone (FLONASE) 50 mcg/spray Parks, Suspension Administer 1 Parks in each nostril daily. 1 01/25/20 17 Active flu vaccine quadrivalent 2022-, 6 mo+,,PF, (Flulaval Quad , PF,) 60 mcg (15 mcg x 4)/0.5 mL Syringe syringe Inject 0.5 mL (60 mcg) by intramuscular injection. 0.5 mL 10/02/20 23 Active cetirizine (ZyrTEC) 10 mg tablet Take 10 mg by mouth. Active CALCIUM CARBONATE-VITAMI N D3 ORAL Take by mouth. Activ e nystatin-triamci nolone (MYCOLOG) 100,000-0.1 unit/gram-% Ointment Apply to affected area 2 times daily. 60 Gram 11/23/20 24 Active triamcinolone acetonide (KENALOG) 0.1 % Cream APPLY TOPICALLY TO LEFT HAND TWICE DAILY DIRECTED Active nitrofurantoin (MACROBID) 100 mg capsule Take 1 Capsule by mouth every 12 hours. Active progesterone micronized (Prometrium) 100 mg Capsule Take 1 Capsule (100 mg) by mouth daily. 90 Capsule 3 12/07/19 25 Active fluconazole (DIFLUCAN) 150 mg tablet Take 1 tab (150 mg) by mouth on day one. Take additional tab (150 mg) by mouth 3 days after initial dose 2 Tablet 12/30/19 25 Active fluconazole (DIFLUCAN) 150 mg tablet Take 1 tab (150 mg) by mouth on day one. Take additional tab (150 mg) by mouth 3 days after initial dose 2 Tablet 03/18/20 25 Active Estradiol (DivigeL) 1 mg/gram (0.1 %) Gel in Packet Apply 1 Package (1 mg) to skin as directed daily. 30 Each 3 05/11/20 25 Active Active Problems No known active problems Resolved Problems Problem Noted Date Diagnosed Date Resolved Date mil,pit,gbs-,O+,[id number] 08/30/2010 Routine general medical exam ination at a health care facility 09/30/2007 04/14/2013 Abdominal pain, generalized 07/21/2006 04/14/2013 Overview (04/14/2013): Intermittent LUQ abdominal pain. Urinary frequency 12/30/2005 04/14/2013 Insomnia, unspecified 12/30/20052016 Encounters Date Type Department Care Team Description 07/05/2025 External Device Data ST[facility] ABSTRACTION Provider, Abstract 06/15/2025 External Device Data ST[facility] ABSTRACTION Provider, Abstract 06/14/2025 External Device Data ST[facility] ABSTRACTION Provider, Abstract 05/17/2025 External Device Data ST[facility] ABSTRACTION Provider, Abstract 04/26/2025 External Device Data ST[facility] ABSTRACTION Provider, Abstract 04/20/2025 External Device Data STL ABSTRACTION Provider, Abstract 04/19/2025 External Device Data STL ABSTRACTION Provider, Abstract from Last 3 Months Immunizations Immunization Administration Dates Next Due (ADACEL/BOOSTRIX)(10 YR UP) TDAP VACCINE, 0.5ML, IM 01/11/2009 INFLUENZA VACCINE QUADRIVALENT 6 MOS UP PF IM Influenza Seasonal Unspecified Formulation IM ,08/31/2015 Influenza Vaccine Split 3+ Yrs IM 08/16/2014 Influenza Vaccine Split 3+ Yrs PF IM 12/13/2013 Family History Medical History Relation Name Comments Hypertension Brother 3 Rashes/Skin Problems Brother 4 Asthma Daughter 1 Eczema Daughter 2 Alcohol abuse Father Pancreatic Cancer Father pancratic/ lung Arthritis-osteo Mother Hypertension Mother Liver Disease Paternal Grandfather alcoho lic Other Sister 1 kidney stones Other Sister 2 colon polyp Migraines Sister 3 Celiac Disease Neg Hx Colon Cancer Neg Hx Crohn's Disease Neg Hx Inflammatory Bowel Disease Neg Hx Ulcerative Colitis Neg Hx Relation Name Status Comments Brother 1 Alive Brother 2 Alive Brother 3 Brother 4 Daughter 1 Daughter 2 Father (Age 68) Mother Alive Paternal Grandfather Paternal Grandmother (Age 50) Sister 1 Alive Sister 2 Alive Sister 3 Social History Tobacco Use Types Packs/Day Years Used Date Smoking Tobacco: Never Smokeless Tobacco: Never Tobacco Cessation:Counseling Given: Yes Alcohol Use Standard Drinks/Week Comments Yes 0 (1 standard drink = 0.6 oz pur e alcohol) occassionally Comments No Sex and Gender Information Value Date Recorded Sex Assigned at Not on file Legal Sex Female 3:56 AM DIRECTOR OF COLLECTIONS AND ARCHIVES Gender Identity Not on file Sexual Orientation Not on file 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 Not on file Not on file Not on file Last Filed Vital Signs Vital Sign Reading Time Taken Comments Blood Pressure 106/76 12/07/2024 11:25 AM DIRECTOR OF COLLECTIONS AND ARCHIVES Pulse 54 06/30/2024 1:17 PM CDT Temperature 36.3 C (97.4 F) 06/16/2018 1:23 PM CDT Respiratory Rate 14 06/16/2018 1:35 PM CDT Oxygen Saturation 99% 06/16/2018 1:35 PM CDT Inhaled Oxygen Concentration - - Weight 56.2 kg (123 lb 12.8 oz) 025 11:25 AM DIRECTOR OF COLLECTIONS AND ARCHIVES Height 162.6 cm (5' 4) 12/07/2024 11:2 5 AM DIRECTOR OF COLLECTIONS AND ARCHIVES Body Mass Index 21.25 12/07/2024 11:25 AM DIRECTOR OF COLLECTIONS AND ARCHIVES Plan of Treatment Health Maintenance Due Date Last Done Comments HEPATITIS B VACCINES (1 of 3 - 19+ 3-dose series) 1990 FIT-DNA Q 3 years 2016 FIT/FOBT Q 1 year 2016 Flex Sig/CT Colonography Q 5 years 2016 DTAP/TDAP/TD VACCINES (2 - T d or Tdap) 01/11/2019 01/11/2009 ZOSTER VACCINE (1 of 2) 2021 INFLUENZA VACCINE (#1) 2025 2, 09/05/2020, 09/08/2019, Additional history exists BREAST CANCER SCREENING 01/10/2026 01/10/20 25, 12/08/2023, 11/20/2022, Additional history exists PAP SMEAR 12/07/2027 12/07/2024, 10/02, 07/22/2022, Additional history exists COLORECTAL SCREENING 06/16/2028 06/16/2018, 06/16/2018, 06/16/2018 Colorectal Cancer Screening 06/16/2028 CERVICAL CANCER SCREENING 12/07/2029 HPV/Cotest (21-29) 12/07/2029 12/07/2024, 1 12/22/2022, 07/22/2022, Additional history exists HPV/Cotest (30-65) 12/07/2029 12/07/2024, 1 12/22/2022, 07/22/2022, Additional history exists Procedures Procedure Name Priority Date/Time Associated Diagnosis Comments MAMMO SCREEN BILAT W OR WO CAD Routine 01/10/2025 10:40 AM DIRECTOR OF COLLECTIONS AND ARCHIVES CERV/VAG CYTO AGE BASED SCREEN PAP Routine 12/07/2024 12:28 PM DIRECTOR OF COLLECTIONS AND ARCHIVES Screening for malignant neoplasm of cervix COLONOSCOPY REPORT 06/16/2018 1: 21 PM CDT from Last 3 Months or Most Recently Relevant to Health Maintenance Results * MAMMO SCREEN BILAT W OR WO CAD (01/10/2025 10:40 AM DIRECTOR OF COLLECTIONS AND ARCHIVES) Anatomical Region Laterality Modality Breast Bilateral Mammography us Jonathan Pedro MD MAMMO ORDERABLES Edited Resu lt - Final * CERV/VAG CYTO AGE BASED SCREEN PAP (12/07/2024 12:28 PM DIRECTOR OF COLLECTIONS AND ARCHIVES) COMMENT (PAP): [facility] Comment: This order for age-based cervical cancer and STI screening follows ACOG guidelines(PB 168, 140, LTK548). See individual assays for performing site location. CLINICAL INFORMATION [facility] Comment:SCREENING LAST MENSTRUAL PERIOD [facility] Comment:NONE GIVEN PREV PAP: [facility] Comment:NONE GIVEN PREV BX: [facility] Comment:NONE GIVEN SOURCE [facility] Comment:Endocervix ADEQUACY: [facility] Comment: SATISFACTORY FOR EVALUATION Partially obscuring inflammation PAP INTERP [facility] Comment: Cytology Results: Negative for intraepithelial lesion or malignancy. Atrophic pattern; predominantly parabasal cells COMMENT (PAP TEST) [facility] Comment: This Pap test has been evaluated with computer assisted technology. LOGGING CREW SUPERVISOR: [facility] Comment: TMK, CT(ASCP) CT screening location: [place] [address] [place] [address] EXPLANATORY NOTE [facility] Comment: EXPLANATORY NOTE: The Pap is a screening test for cervical cancer. It is not a diagnostic test and is subject to false negative and false positive results. It is most reliable when a satisfactory sample, regularly obtained, is submitted with relevant clinical findings and history, and when the Pap result is evaluated along with historic and current clinical information. HPV E6/E7 Not Detected Not Detected [facility] Comment: Methodology: Can Washer-Mediated Amplification This assay detects E6/E7 viral messenger RNA (mRNA) from 14 high-risk HPV types (16,18,31,33,35,39,45,51,52,56,58,59,66,68). Cervical sources are required for HPV testing. If a vaginal source from a patient who has had a total hysterectomy with removal of cervix was submitted, please contact the testing laboratory for alternative testing options. For additional information, please refer to http://education.Mahalo/faq/NNY035u6 (This link if provided for information/ educational purposes only.) Test Performed at: [facility] [address] [place] [address] Juan Antonio TURNER Genital SWAB OF ENDOCERVIX / Unknown 12/07/2024 12:28 PM DIRECTOR OF COLLECTIONS AND ARCHIVES 12/08/2024 2:02 AM DIRECTOR OF COLLECTIONS AND ARCHIVES us Jonathan Pedro MD PATHOLOGY/CYTOLOGY ORDERABLE S Final Result [facility] [phone] [facility] [address] [place] [address] * COLONOSCOPY REPORT (06/16/2018 1:21 PM CDT) Narrative Procedure Note Judith Bueno MD - 06/16/2018 1:21 PM CDT [facility] Endoscopy Patient Name: Nissa Borden Procedure Date: 06/16/2018 Date of : 1970 Admit Type: Outpatient Age: 47 Attending MD: Judith Bueno MD Procedure: Colonoscopy Indications: Change in bowel habits Providers: Judith Bueno MD Referring MD: Jessica Hardwick Complications: No immediate complications. Procedure: Informed consent was obtained for the procedure, including moderate sedation after risks were discussed. Based on the pre-procedure assessment, including review of the patient's medical history, medications, allergies, and review of systems, the patient was deemed to be an appropriate candidate for sedation. A timeout was performed. Continuous ECG monitoring, pulse oximetry, blood pressure monitoring, and direct observation were performed. The scope was introduced through the anus and advanced to the terminal ileum. The colonoscopy was performed without difficulty. The patient tolerated the procedure well. The quality of the bowel preparation was good. Findings: The digital rectal exam was normal. The terminal ileum appeared normal. Normal mucosa was found in the entire colon. The retroflexed view of the distal rectum and anal verge was normal and showed no anal or rectal abnormalities. Estimated Blood Loss: Estimated blood loss was minimal. Impression: - The examined portion of the ileum was normal. - Normal mucosa in the entire examined colon. - The distal rectum and anal verge are normal on retroflexion view. - No specimens collected. Recommendation: - Discharge patient to home. - Continue present medications. - Repeat colonoscopy in 10 years for screening purposes unless symptoms change or family history changes. Judith Bueno MD 06/16/2018 1:21:10 PM This report has been signed electronically. Number of Addenda: [phone] [id number] [place] [address] Judith Bueno MD GI PROCEDURE ORDERABLES Final Result from Last 3 Months or Most Recently Relevant to Health Maintenance Insurance RX [employer] Commercial RX [facility] [employer] [facility] BENEFIT PL[facility] Advance Directives For more information, please contact: [phone] * Full Code (Latest Code Status on File) Date Activated Date Inactivated Comments 06/16/2018 12:42 PM 06/16/2018 3:42 PM * Full Code Date Activated Date Inactivated Comments 08/31/2010 6:44 AM 09/02/2010 12:28 PM * Full Code Date Activated Date Inactivated Comments 08/30/2010 10:22 PM 08/31/2010 6:44 AM Care Teams Form Maker Relationship Specialty Start Date End Date Jessica Hardwick MD [address] [place] [phone] PCP - General Internal Medicine 10/08/16
--- OUTSIDE RECORDS SUMMARY | 2025-07-14 09:34 | XMS_ITS | Encounter Summary ---
Author Organization [facility] Address [address] [place] [address] Care Team Providers Care Railroad Car Loader Name Role Phone Jessica Hardwick MD Primary Care Provider [phone] Encounter Details Date Type Department Care Team (Late st Contact Info) Description 09/30/2007 Outpatient Historical [facility] Internal Medicine - [place] [address] [place] [phone] [place] [address] [place] [phone] Social History Tobacco Use Types Packs/Day Years Used Date Smoking Tobacco: Never Assessed Comments Unknown Sex and Gender Information Value Date Recorded Sex Assigned at Not on file Legal Sex Female 3:56 AM HOLLOCK MAKER Gender Identity Not on file Sexual Orientation Not on file documented as of this encounter Plan of Treatment Not on file documented as of this encounter Visit Diagnoses Not on filedocumented in this encounter Care Teams Railroad Car Loader Relationship Specialty Start Date End Date Jessica Hardwick MD [facility] [address] [place] [address] PCP - General Internal Medicine 10/08/16 documented as of this encounter
--- OUTSIDE RECORDS SUMMARY | 2025-07-14 09:34 | XMS_ITS | Encounter Summary ---
Author Organization [facility] Address [address] [place] [address] Care Team Providers Care Fourchette Sewer Name Role Phone Jessica Hardwick MD Primary Care Provider [phone] Encounter Details Date Type Department Care Team (Late st Contact Info) Description 08/11/2008 Outpatient Historical [facility] Jonathan Pedro MD [address] [place] [address] [address] [place] [address] Abdominal Pain, Unspecified Site Social History Tobacco Use Types Packs/Day Years Used Date Smoking Tobacco: Never Assessed Comments Unknown Sex and Gender Information Value Date Recorded Sex Assigned at Not on file Legal Sex Female 3:56 AM UNDERWRITING OPERATIONS MANAGER Gender Identity Not on file Sexual Orientation Not on file documented as of this encounter Plan of Treatment Not on file documented as of this encounter Procedures Procedure Name Priority Date/Time Associated Diagnosis Comments US ABDOMEN LIMITED Timed Study 08/11/2008 8: 32 AM CDT documented in this encounter Results * US ABDOMEN LIMITED (08/11/2008 8:32 AM CDT) Anatomical Region Laterality Modality Abdomen Other 08/11/2008 8:32 AM CDT Narrative 08/11/2008 10:54 AM CDT [address] [address] Admit Date: 08/11/2008 GRISELDA BORDEN Sydney Sex: F Admit Prov: JONATHAN PEDRO Date: 1970 Primary Care Prov: PCP, UNKNOWN CMRN: [id number] [id number] Ordering Prov: N/A Accession Number: [id number] Interpretation ULTRASOUND OF THE ABDOMEN LIMITED. 08/11/2008 History: Abdominal pain. Findings: Multiple transverse, longitudinal and oblique images of the right upper quadrant were obtained. The liver has a normal size, contour and echotexture. There is no duct dilatation, fluid collection or mass. The gallbladder appears normal without evidence of gallstones, gallbladder wall thickening or pericholecystic fluid. The common bile duct has a normal caliber and there is no evidence of intrahepatic ductal dilatation. There is no evidence of ascites or fluid in Resendiz's pouch. Opinion: Normal right upper quadrant ultrasound. . Dictated by: EMILIO GUERRA 08/11/2008 08:37 Electronically signed by: EMILIO GUERRA 08/11/2008 10:53 Transcribed: 08/11/2008 10:08 AMK Procedure Note Emilio Guerra MD - 08/11/2008 [facility] [address] [place], [place] [address] Admit Date: 08/11/2008 SUHAGRISELDA Sydney Sex: F Admit Prov: JONATHAN PEDRO Date: 1970 Primary Care Prov: PCP, UNKNOWN CMRN: [id number] [id number] IM[facility]ING SERVICES Ordering Prov: N/A Interpretation ULTRASOUND OF THE ABDOMEN LIMITED. 08/11/2008 History: Abdominal pain. Findings: Multiple transverse, longitudinal and oblique images of theright upper quadrant were obtained. The liver has a normal size, contourand echotexture. There is no duct dilatation, fluid collection ormass. The gallbladder appears normal without evidence of gallstones,gallbladder wall thickening or pericholecystic fluid. The common bile duct has anormal caliber and there is no evidence of intrahepatic ductal dilatation.There is no evidence of ascites or fluid in Resendiz's pouch. Opinion: Normal right upper quadrant ultrasound. . Dictated by: EMILIO GUERRA 08/11/2008 08:37 Electronically signed by: EMILIO GUERRA 08/11/2008 10:53 Transcribed: 08/11/2008 10:08 AMK us Jonathan Pedro MD ORDERABLES Final Result documented in this encounter Visit Diagnoses Diagnosis Abdominal pain, unspecified site documented in this encounter Care Teams Fourchette Sewer Relationship Specialty Start Date End Date Jessica Hardwick MD [address] [place] [phone] PCP - General Internal Medicine 10/08/16 documented as of this encounter
--- OUTSIDE RECORDS SUMMARY | 2025-07-14 09:34 | XMS_ITS | Clinical Summary ---
Author Organization [facility] [address] Address [address] [place] [phone] Care Team Providers Care Keypuncher Name Role Phone Madelaine Hassan Primary Care Pr ovider Allergies Active Allergy Reactions Criticality Noted Date Comments Codeine Swelling Medium 05/13/2023 Medications cetirizine (ZyrTEC) 10 mg tablet Take 1 tablet (10 mg total) by mouth daily as needed Active fluticasone propionate (FLONASE) 50 mcg/actuation nasal spray Administer 1 spray into affected nostril(s) daily 7 Active montelukast (SINGULAIR) 10 mg tablet Take 1 tablet (10 mg total) by mouth daily 7 Active multivitamin tablet Take 1 tablet by mouth daily Active triamcinolone (KENALOG) 0.1 % cream APPLY TOPICALLY TO LEFT HAND TWICE DAILY DIRECTED Active nitrofurantoin monohydrate (MACROBID) 100 mg capsule Take 1 capsule (100 mg total) by mouth every 12 (twelve) hours Active estradioL 0.75 mg/0.75 gram (0.1%) gel in packet 5 Active progesterone (PROMETRIUM) 100 mg capsule 5 Active Active Problems Problem Noted Date Diagnosed Date Irritable bowel syndrome with constipation 07/03 Menopausal syndrome 07/03/2023 Degeneration of lumbosacral intervertebral disc 07/29/2022 Bilateral hydronephrosis 07/08/2022 Abdominal bloating 07/02/2022 Lower urinary tract symptoms 07/02/2022 Swelling of finger of both hands 07/02/2022 Weight gain 07/02/2022 Social History Tobacco Use Types Packs/Day Years Used Date Smoking Tobacco: Never Assessed Comments Unknown Sex and Gender Information Value Date Recorded Sex Assigned at Not on file Legal Sex Female 7:58 AM CDT Gender Identity Not on file Sexual Orientation Not on file Obstetrics History Last Filed Vital Signs Vital Sign Reading Time Taken Comments Blood Pressure 108/70 03/22/2025 7:06 PM CDT Pulse 68 03/22/2025 7:06 PM CDT Temperature 36.7 C (98.1 F) 03/22/2025 7:06 PM CDT Respiratory Rate 16 03/22/2025 7:06 PM CDT Oxygen Saturation 98% 03/22/2025 7:06 PM CDT Inhaled Oxygen Concentration - - Weight 57.2 kg (126 lb) 03/22/2025 7:06 PM CDT Height 162.6 cm (5' 4) 06/13/2024 10:28 AM CDT Body Mass Index 21.63 06/13/2024 10:28 AM CDT Plan of Treatment Health Maintenance Due Date Last Done Comments Cervical Cancer Screening 1970 Colon Cancer Screening-Colonoscopy 1970 Depression Screening 1970 Hepatitis C Screening 1970 Hepatitis B Screening 1989 Regular Well Visit/Exam 18-64 1989 DTaP/Tdap/Td Vaccine (2 - Td or Tdap) 01/11/2019 01/11/2009 Zoster Vaccine (1 of 2) 2021 Covid-19 Vaccine (3 - season) 2024 02/15/2021, 01/19/2021 Breast Cancer Screening-Mammogram 12/08/2024 12/08/2023 Influenza Vaccine (#1) 2025 2, 09/20/2021, 09/05/2020, Additional history exists Pneumococcal vaccine <65 Aged Out No longer eligible based on patient's age to complete this topic Insurance [facility] [id number] [facility] [id number] Care Teams Keypuncher Relationship Specialty Start Date End Date Madelaine Hassan PA PCP - General Physician Mds Manager 05/13/23
--- OUTSIDE RECORDS SUMMARY | 2025-07-14 09:34 | XMS_ITS | Encounter Summary ---
Author Organization [facility] Address [address] [place] [address] Care Team Providers Care Fluorescent Lamp Replacer Name Role Phone Jessica Hardwick MD Primary Care Provider [phone] Encounter Details Date Type Department Care Team (Late st Contact Info) Description 09/30/2007 Orders Only [facility] Internal Medicine - [place] [address] [place] [phone] Areli Gilliland, DAMON [address] [place] [phone] Social History Tobacco Use Types Packs/Day Years Used Date Smoking Tobacco: Never Assessed Comments Unknown Sex and Gender Information Value Date Recorded Sex Assigned at Not on file 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 TOBACCO USE Patient does not currently use tobacco. MEDICATIONS: Patient is taking no medications at present. CHIEF COMPLAINT Seen for a preventive examination. was taking lexapro for anxiety HISTORY: HISTORY OF PRESENT ILLNESS: MOOD DISORDER: she was on Lexapro for 1 1/2 months (several months ago). She was getting samples from a friend who is a physician. She ran out but now states she can feel the stress building. She haswork-related and home-related stress. She had no side effects in the past. Took 1/2 pill and that was enough. No suicidal thoughts. ROS: GENERAL: Normal activity and energy level, no change in appetite. No major weight gain or loss. No malaise, chills, fever, diaphoresis.. ALLERGIC/IMMUNOLOGIC: No hay fever or history of environmental allergies. No chronic problems with immunity. EYES: . ENT: No hearing loss, epistaxis, hoarseness or dysphagia. No sinus congestion.. ENDOCRINE: No heat or cold intolerance, no excessive thirst.. CARDIAC: No chest pain, palpitations, orthopnea, dyspnea on exertion, or paroxysmal nocturnal dyspnea.. RESPIRATORY: No dyspnea, cough, hemoptysis or wheezing.. : No frequency, urgency, hematuria or dysuria.. GI: No abdominal pain, nausea, vomiting, diarrhea, constipation, melena, or hematochezia.. NEUROLOGIC: No weakness, dizziness, loss of consciousness, transient ischemic symptoms, or seizures. MUSCULOSKELETAL: No muscle or joint pain, weakness, swelling or inflammation. No restriction of motion, no atrophy or backache. PSYCHIATRIC: See HISTORY OF PRESENT ILLNESS. SOCIAL HISTORY: TOBACCO USE: Has no significant smoking history. ALCOHOL: Drinks a minimal amount of alcohol. CAFFEINE: A moderate amount of caffeinated beverages daily. EXERCISES: The exercise is predominantly cardio, running. PHYSICAL EXAMINATION: CONSTITUTIONAL: GENERAL APPEARANCE: Healthy appearing patient in no distress. EYES: PUPILS: Pupils equal and normally reactive to light and accommodation. FUNDUSCOPIC EXAM: Ophthalmoscopic examination shows the fundi to be normal. The optic disc are flatand of normal size. There are no hemorrhages or exudates. EARS, NOSE, MOUTH AND THROAT: EARS: Tympanic membranes shiny without retraction. Canals unremarkable. Hearing grossly normal. NOSE (AND SINUS): No abnormality of the nose or sinuses is noted. ORAL: Inspection of gums, lips, palate, and teeth normal. No scars, lesions, or masses. Oral mucosaunremarkable with non-inflamed posterior pharynx. NECK/THYROID: Trachea midline. No thyroid enlargement, tenderness, or mass. No supraclavicular or cervical adenopathy. RESPIRATORY: Clear to auscultation and percussion. Normal respiratory effort. CARDIOVASCULAR: CARDIAC: Regular rhythm. No murmurs, rubs, or gallops. ARTERIAL: No aortic bruits. EDEMA/VARICOSITIES OF EXTREMITIES: No edema or varicosities. LYMPHATICS: No lymphadenopathy in the neck. GASTROINTESTINAL: ABDOMEN: Soft, non-tender, without masses. Bowel sounds active. LIVER/SPLEEN/KIDNEY: No hepatosplenomegaly, tenderness or nodularity. Kidneys not palpable. MUSCULOSKELETAL EXAM: GAIT/STATION: Normal gait. HEAD AND NECK: Normal to inspection and palpation with satisfactory range of motion. Strength adequate with normal stability. SPINE/RIBS/PELVIS: No kyphosis, lordosis, full range of motion. Normal stability, strength and tone. SKIN: SKIN: Warm, dry, no diaphoresis, no significant lesions, irritation, rashes or ulcers. No induration, obvious subcutaneous nodules or tightening. NEUROLOGIC: DEEP TENDON REFLEXES: Patellar reflexes 2+/4+ and symmetrical. PSYCHIATRIC: Judgment appropriate. Oriented. Normal memory. Mood and affect appropriate. ASSESSMENT/PLAN: 780.52-INSOMNIA MEDICATIONS: LEXAPRO ORAL TABLET 10 MG, 1 Every Day, 30 Dispensed, 3 Fills, status: NEW PRESCRIPTION, 09/30/2007. V70.0-ROUTINE GENERAL MEDICAL EXAMINATION LAB ORDERS: Order number: [id number] Test Ordered: CBC W/ DIFFERENTIAL 3150 Order number: [id number] Test Ordered: COMPREHENSIVE METABOLIC PANEL & GFR 1112 Order number: [id number] Test Ordered: LIPID PANEL 1078 Order number: [id number] Test Ordered: TSH 1720 PREVENTIVE COUNSELING The patient was counseled regarding regular self- examination of the breasts on a monthly basis, diet, regular sustained exercise for at least 30 minutes 3-4 times per week, screening procedures and recommended schedules for mammography, GI hemoccult testing, colonoscopy,cholesterol, thyroid and diabetes screening. RETURN VISIT : Patient instructed to return in 6 weeks. Electronically Signed by: RENARD Barry, TRANSPORTATION MAINTENANCE OPERATOR on Sunday, September 30, 2007 Electronically Signed by: Johnny Miller MD on Thursday, October 11, 2007 documented in this encounter Plan of Treatment Not on file documented as of this encounter Visit Diagnoses Not on filedocumented in this encounter Care Teams Fluorescent Lamp Replacer Relationship Specialty Start Date End Date Jessica Hardwick MD [address] [phone] PCP - General Internal Medicine 10/08/16 documented as of this encounter
--- OUTSIDE RECORDS SUMMARY | 2025-07-14 09:34 | XMS_ITS | Encounter Summary ---
Author Organization [facility] Address [address] [place] [address] Care Team Providers Care Furniture Designer Name Role Phone Jessica Hardwick MD Primary Care Provider [phone] Encounter Details Date Type Department Care Team (Late st Contact Info) Description 12/30/[address] 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
--- OUTSIDE RECORDS SUMMARY | 2025-07-14 09:34 | XMS_ITS | Encounter Summary ---
Author Organization [facility] Address [address] [place] [address] Care Team Providers Care Plate Corrector Name Role Phone Jessica Hardwick MD Primary Care Provider [phone] Encounter Details Date Type Department Care Team (Latest Contact Info) Description 07/01/2008 Outpatient Historical 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 Gender Identity Not on file Sexual Orientation Not on file documented as of this encounter Plan of Treatment Not on file documented as of this encounter Procedures Procedure Name Priority Date/Time Associated Diagnosis Comments US OB LTD 1 OR MORE FETUSES Timed Study 07/01/2008 7:58 AM CDT documented in this encounter Results * US OB LTD 1 OR MORE FETUSES (07/01/2008 7:58 AM CDT) Anatomical Region Laterality Modality Pelvis Other Narrative 07/01/2008 7:58 AM CDT Results in [facility] Procedure Note 06/08/2009 Results in [facility] Jonathan Pedro MD US ORDERABLES Final Result documented in this encounter Visit Diagnoses Diagnosis Other specified complication, antepartum(416.09) Other specified complication, antepartum documented in this encounter Care Teams Plate Corrector Relationship Specialty Start Date End Date Jessica Hardwick MD [address] [place] [phone] PCP - General Internal Medicine 10/08/16 documented as of this encounter
== END 2025-07-14 09:18 | disposition home or self-care (01) ==
PROVIDERS: PCP Physician Assistant; Visit Provider Urology
DX: I87.8 Other specified disorders of veins (principal); N20.0 Calculus of kidney
CPT/HCPCS: 74018